=== PATIENT | male | born 2000 | race African-American/Black ===

== ENCOUNTER 2025-04-29 08:30 | Emergency (ER) | payer OTHER, SELFPAY ==
[2025-04-29 08:35] VITALS: BP 120/69; PULSE 62; RESP 16; TEMP 36.2; O2SAT 100; BMI 21.5
[2025-04-29 08:43] VITALS: BP 127/77; PULSE 63; RESP 14; TEMP 36.4; O2SAT 98
--- NOTE | 2025-04-29 08:47 | PC.NURSE ---
Patient A&O x 3. Patient presents to ED c/o tooth pain. Pain has been persistent for about a year and has become worse. Pain rated 9/10 with some radiation to left ear. Tooth #14 affected. Assessed oral mucosa, no inflammation noted. Patient stated It was swollen at one point but it drained . Denies injury, fever/chills VSS and up to date. Provider in to see patient. Plan of care on going
--- NOTE | 2025-04-29 08:48 | ED_ITS ---
HPI - Dental/Oral General Chief complaint: Dental/Oral Stated complaint: dental pain Time Seen by Provider: 04/29/25 08:46 Source: patient Mode of arrival: ambulatory Limitations: no limitations History of Present Illness ED Provider: Krystle Bunn NP HPI Narrative: Patient is a 24-year-old male who presents emergency department for evaluation. He reports that he has been experiencing pain to his right upper molars over the past 2 years. He has not sought evaluation with a dentist. Pain has been intermittent. However over the past 2 weeks it has become more bothersome for him. He states that yesterday for the 1st time he took a single dose of ibuprofen 400 mg and he had a little bit of relief from this. Has not taken additional OTC medications. Has not used any Orajel type products. He states that he has been recently experiencing a foul taste in his mouth and feels like there is drainage coming from the gums. He denies any headache, fevers, chills, neck pain, neck stiffness, difficulty swallowing or painful swallowing, inability to open his mouth, bleeding from the gums, known dental fracture Related Data Previous Rx's ?Medication ?Instructions ?Recorded amoxicillin 875 mg-potassium 1 tab PO BID #14 tabs clavulanate 125 mg tablet Allergies Allergy/AdvReac Type Severity Reaction Status Date / Time No Known Allergies Allergy Verified 04/29/25 08:38 Review of Systems Review of Systems: Yes all other systems are reviewed and are negative [facility] Past Medical History Attestation statement: The following information was validated with the patient. Source: old records reviewed Social History Social History Smoked in Last 30 Days: No Use of substances other than those prescribed or required for medical reasons: Yes Substance Use Type: Marijuana Advance Directives: No Advance Directives Information Provided: No Do you have a plan to hurt others: No Plan Physical Exam Vital Signs: Vital Signs: Last Vital Signs Temp 97.6 F 04/29/25 08:43 Pulse 63 04/29/25 08:43 Resp 14 04/29/25 08:43 BP 127/77 04/29/25 08:43 Pulse Ox 98 04/29/25 08:43 O2 Del Method Room Air 04/29/25 08:43 BMI result Body Mass Index 21.5 Appearance: Alert. Oriented X3. No acute distress. Head: Normal external exam. Normocephalic. Atraumatic. Eyes: PERRLA. EOMI. Conjunctiva and sclera normal. Eyelids normal. ENT: EAC normal. TM's Normal. Pharynx normal. Uvula midline. Moist mucous membranes.? ?No trismus noted.? No drooling noted.? No muffled voice noted. Dentition:? Patient without visualized dental caries or apparent fractured teeth. Localizes pain to molars 13 through 16, there is mild gingival erythema no apparent fluctuance. No appreciable dental abscess. No salivary duct obstruction noted. Neck: Normal inspection. Neck supple. FROM. No adenopathy. No meningeal signs. No neck mass noted.? CVS: Normal heart rate and rhythm. Heart sound normal. Respiratory: No respiratory distress. Lung sounds clear to the apices bilaterally. Skin: Skin warm and dry.? Normal skin color.? Extremities: Extremities exhibit normal range of motion.? Neuro: Oriented X 3.? No motor deficit.? No sensory deficit.? Medical Decision Making Medical Decision Making MDM Narrative: Patient is a 24 who presents emergency department for evaluation of dental pain as per HPI, localized 2 molars 13 through 16. On examination there is mild gingival erythema no apparent dental caries reported temperature sensitivity, denies severe pain/ tenderness of the tooth or purulence to suggest acute pulpitis. Does not appear consistent with periapical or periodontal abscess, no fluctuance or purulent drainage noted. No trismus, no associated sore throat, no dysphagia, no odynophagia, no hoarseness, no stridor, no dyspnea, low suspicion for paripharyngeal space infection. Uvula is midline, no edema to the soft palate, unlikely peritonsillar abscess. No induration below the angle of the mandible on the neck, nontoxic in appearance, unlikely parapharyngeal abscess. Posterior pharyngeal anatomy is without any evidence of distortion, unlikely retropharyngeal abscess. On examination no tenderness of the floor of the mouth, able to tolerate secretions, no drooling, no nuchal rigidity, no swelling to the neck, unlikely Marco Antonio's angina. Given his increasing pain, endorsement of foul taste to the mouth and drainage, will provide with a course of antibiotics, use of NSAID, and outpatient follow-up with a dental provider. Given return precautions. All questions and concerns Differential Diagnosis Differential Diagnoses: The differential diagnosis associated with the presentation includes (See narrative above) Prescription Management I considered prescription management with: Pain Medication and Antibiotic Discharge Plan Discharge Clinical Impression: Toothache Patient Disposition: Home, Self-Care Instructions: Toothache (ED) Additional Instructions: As discussed, you are being provided with a course of antibiotics, please complete entire course. You can take ibuprofen 200 mg, 3 tablets (600mg) every 6-8 hours as needed for pain, in addition to Tylenol 500 mg, 2 tablets (1,000mg) every 4-6 hours as needed for pain, but not to exceed 3 doses daily (3,000mg).? Contact dental office to arrange for a visit given your ongoing pain. You may return back to emergency department any new or worsening symptoms or concerns Prescriptions: New amoxicillin-pot clavulanate 875-125 mg tablet 1 tab PO BID Qty: 14 0RF Referrals: Physician,None [Primary Care Provider, Medical] Stand Alone Forms: Work/School Release Print Language: Unable To Collect
[2025-04-29 09:21] VITALS: BP 127/77; PULSE 63; RESP 14; TEMP 36.4; O2SAT 98
== END 2025-04-29 09:21 | disposition home or self-care (01) ==
PROVIDERS: Emergency Provider Emergency Medicine
DX: K08.89 Other specified disorders of teeth and supporting structures (principal); F12.90 Cannabis use, unspecified, uncomplicated
CPT/HCPCS: 99283; 99284

== ENCOUNTER 2025-08-11 06:58 | Emergency (ER) | payer OTHER, SELFPAY ==
[2025-08-11 07:03] VITALS: BP 122/73; PULSE 77; RESP 16; TEMP 36.5; O2SAT 100; BMI 21.5
--- NOTE | 2025-08-11 07:52 | ED.DENTAL ---
HPI - Dental/Oral General Chief complaint: Dental/Oral Stated complaint: L Facial Swelling ? Dental Time Seen by Provider: 08/11/25 07:25 Source: patient Mode of arrival: ambulatory Limitations: no limitations History of Present Illness ED Provider: YARY Spear HPI Narrative: This is a 25-year-old male presenting to the emergency department with 1 day of left-sided facial swelling. Patient reports he woke up this way. He reports this has happened in the past secondary to dental infection. He reports he currently does not have a dentist however is going to schedule an appointment with 1. He does tell me he has multiple broken teeth and poor dentition. Denies fevers, chills, changes in voice, difficulty speaking, drooling, nausea, vomiting, abdominal, chest pain and shortness breath Related Data Previous Rx's ?Medication ?Instructions ?Recorded amoxicillin 875 mg-potassium 1 tab PO BID #14 tabs 04/29/25 clavulanate 125 mg tablet acetaminophen 325 mg tablet 650 mg (2 x 325 mg) PO Q6H PRN 08/11/25 (Tylenol) fever or pain #30 tabs amoxicillin 875 mg-potassium 1 tab PO BID 10 days #20 tabs 08/11/25 clavulanate 125 mg tablet Allergies Allergy/AdvReac Type Severity Reaction Status Date / Time No Known Allergies Allergy Verified 08/11/25 07:05 Review of Systems Review of Systems: Yes all other systems are reviewed and are negative [facility] Past Medical History Attestation statement: The following information was validated with the patient. Source: old records reviewed and nursing notes reviewed Social History Social History Substance Use Type: Marijuana Advance Directives: No Advance Directives Information Provided: No Physical Exam Exam: Exam: Appearance: Alert.? Oriented X3.? No acute distress.? Head: Normocephalic, atraumatic, no step-offs or deformities + l sided facial swelling +poor dention throughout multiple fractured teeth to the left lower side. No evidence of abscess. Normal hard and soft palate Eyes: Pupils equal, round and reactive to light.? Neck: Normal inspection.? Neck supple.? CVS: Normal heart rate and rhythm.? Pulses normal.? Respiratory: No respiratory distress.? Breath sounds normal.? Abdomen: Soft and nontender.? Skin: Skin warm and dry.? Normal skin color.? Normal skin turgor.? Extremities: No lower extremity edema.? No calf ttp. 5/5 strength to bilateral upper and lower extremities Back: No midline tenderness, no C-spine tenderness, full range of motion, no CVA tenderness bilaterally Neuro: Oriented X 3.? No motor deficit.? No sensory deficit. CN 2-12 intact Vital Signs: Vital Signs: Last Vital Signs Temp 97.7 F 08/11/25 08:00 Pulse 77 08/11/25 08:00 Resp 16 08/11/25 08:00 BP 122/73 08/11/25 08:00 Pulse Ox 100 08/11/25 08:00 O2 Del Method Room Air 08/11/25 08:00 BMI result Body Mass Index 21.5 vss Course Reevaluation(s) Reevaluation #1: Educated patient on diagnosis and treatment plan, answered all question, patient verbalizes understanding. At this time patient will be discharged home, advised to return with new or worsening symptoms. Educated on worrisome signs and symptoms and when to return. At this time I feel comfortable discharge home. Time: 11:15 Medical Decision Making Medical Decision Making [facility] Narrative: 0745 25 year old male presents w/ poor dentition and left sided facial swelling since this am PE facial swelling and multiple fx to teeth to left lower side. No abcess. History and physical exam concerning for early dental infection. No abscess. Unlikely Marco Antonio's or oral cellulitis. There are multiple caries and fractured teeth Plan Augmentin patient to follow up with dentist outpatient Differential Diagnosis Differential Diagnoses: The differential diagnosis associated with the presentation includes (History and physical exam concerning for early dental infection. No abscess. Unlikely Marco Antonio's or oral cellulitis. There are multiple caries and fractured teeth) Admission/Observation Consideration of admission/observation: Escalation of care including admission/observation considered (considered ) Discharge Plan Discharge Clinical Impression: Toothache Patient Disposition: Home, Self-Care Instructions: Toothache (ED) Additional Instructions: Take your medications as prescribed. If you were prescribed antibiotics today, it is important that you take your medication to their entirety, do not skip any doses, do not finish them early. Follow-up with your primary care provider this week. Return to the emergency department with new or worsening symptoms. Such as fevers, chills, chest pain, shortness of breath, nausea, vomiting, dizziness, headache, vision changes, lethargy In case of emergency call 911 Follow up with a dentist Thursday- return with new or worsening symptoms Prescriptions: New acetaminophen [Tylenol] 325 mg tablet 650 mg PO Q6H PRN (Reason: fever or pain) Qty: 30 0RF amoxicillin-pot clavulanate 875-125 mg tablet 1 tab PO BID 10 Days Qty: 20 0RF No Action amoxicillin-pot clavulanate 875-125 mg tablet 1 tab PO BID Qty: 14 0RF Referrals: Physician,None [Primary Care Provider, Medical] Stand Alone Forms: Work/School Release Interventions: ED Discharge Assessment Last Done: 08/11/25 08:00 Discharge Date/Time: 08/11/25 08:00 Print Language: Unable To Collect
[2025-08-11 08:00] VITALS: BP 122/73; PULSE 77; RESP 16; TEMP 36.5; O2SAT 100
== END 2025-08-11 08:00 | disposition home or self-care (01) ==
PROVIDERS: Emergency Provider Emergency Medicine
DX: K08.89 Other specified disorders of teeth and supporting structures (principal); R22.0 Localized swelling, mass and lump, head
CPT/HCPCS: 99282; 99283